=== PATIENT | female | born 1980 | race Caucasian/White ===

== ENCOUNTER 2023-04-11 10:11 | Emergency (ER) | payer OTHER, SELFPAY ==
[2023-04-11 10:16] VITALS: BP 149/90; PULSE 92; RESP 20; TEMP 36.8; O2SAT 100
[2023-04-11] MEDS: methylPREDNISolone SOD SUCC 125 MG VIAL IM (10:36)
[2023-04-11] MEDS: diphenhydrAMINE HCl INJ 50 MG/ML VIAL IM (10:37)
--- NOTE | 2023-04-11 10:38 | ED.SKABFB ---
HPI - Skin/Abscess/Foreign Bdy General Chief complaint: Skin/Abscess/Foreign Body Stated complaint: Facial Swelling/Rash History of Present Illness HPI narrative: Patient presents with swelling to both eyes and face. Patient states 3 days ago she was working out in the [employer] and pulling weeds. Patient states she woke up Tuesday with facial swelling no shortness of breath and no chest pain and met on the Internet to wash with Bev soap in use alcohol. Patient states she was much improved Tuesday when she went to bed but woke up this morning with both eyes swollen shut. No respiratory problems. Patient also has a rash down the right side of her neck and on her back. Patient is not taking anything [id number] for her symptoms. Related Data Allergies Allergy/AdvReac Type Severity Reaction Status Date / Time PINESOL Allergy Uncoded 12/21/13 06:54 Review of Systems Review of Systems: CONSTITUTIONAL: Denies fever, chills, or sweats. EYES: Denies visual changes, redness, or discharge. ENT: Denies rhinorrhea, congestion, sore throat, or otalgia. CARDIOVASCULAR: Denies chest pain, palpitations, or edema. RESPIRATORY: Denies cough or dyspnea. GASTROINTESTINAL: Denies abdominal pain, nausea, vomiting, or diarrhea. GENITOURINARY: Denies dysuria or hematuria. SKIN: Denies rash or itching. MUSCULOSKELETAL: Denies back pain, joint pain, or myalgia. NEUROLOGIC: Denies headache, numbness, or weakness. PSYCHIATRIC: Denies anxiety or depression. [facility] Family History Family History (Updated 01/02/18 @ 10:44 by DOCTOR UNKNOWN) Grandparent Family history of malignant neoplasm of breast in first degree relative Social History Social History Smoking status: Heavy tobacco smoker Alcohol intake: current Comments At time of signature, agree with nursing past medical, surgical, social and family history. There is no relevant family history pertinent to the presenting complaint Exam Narrative: GENERAL: Well-appearing, well-nourished, and in no acute distress. HEAD: Normocephalic, atraumatic. EYES: PERRLA and EOMI.swelling to both upper eye lids ENT: Nares clear, no rhinorrhea or epistaxis. Mucous membranes moist. NECK: Supple. CHEST: Clear to auscultation. No respiratory distress. HEART: Regular rate and rhythm. No murmur heard. Normal peripheral pulses. ABDOMEN: Soft, nontender, nondistended, normal active bowel sounds. EXTREMITIES: Normal range of motion. No edema. SKIN: Warm, dry, no rash. RASH CONSISTENT WITH RHUS DERMATITIS. LINEAR TIDWELL WITH WET LIKE APPEARS ON NEW AREAS. DIFFERENT STAGES PRESENT. REDNESS TO LESIONS. NO SIGNS OF INFECTION OR CELLULITIS/ABSCESS. NO VESICLES. NO ULCERATIONS. NO RAISED URTICARIAL LESIONS. NO LESIONS ALONG THE WAISTBAND OR IN WEB SPACES. NO BURROWS. NO PETECHIAE. to face neckand back nEURO: No focal deficits. Alert and oriented x3. [place] Coma Scale Eye Opening: Spontaneous 4 [place] Coma Scale Motor: Obeys Commands 6 [place] Coma Scale Verbal: Oriented 5 [place] Coma Scale Total 15 Course Course Level of Care: Express Care Visit Vital Signs Vital signs: Vital Signs Temperature 36.8 C 04/11/23 10:16 Pulse Rate 92 04/11/23 10:16 Respiratory Rate 20 04/11/23 10:16 Blood Pressure 149/90 H 04/11/23 10:16 Pulse Oximetry 100 04/11/23 10:16 Oxygen Delivery Room Air 04/11/23 10:16 Temperature 36.8 C 04/11/23 10:16 Pulse Rate 92 04/11/23 10:16 Respiratory Rate 20 04/11/23 10:16 Blood Pressure 149/90 H 04/11/23 10:16 Pulse Oximetry 100 04/11/23 10:16 Oxygen Delivery Room Air 04/11/23 10:16 Please GRETTA schedule a followup visit with your personal physician for further evaluation and treatment. Including recheck and discussion of your blood pressure. If your symptoms persist, change or worsen significantly before you can contact your personal physician then please, without delay, go to the emergency department for further evaluation Di
== END 2023-04-11 10:58 | disposition home or self-care (01) ==
PROVIDERS: Emergency Provider Nurse Practitioner Family
DX: L23.7 Allergic contact dermatitis due to plants, except food (principal)
CPT/HCPCS: 96372; 99214; G0463; J1200; J2930